=== PATIENT | female | born 1975 | race Native Hawaiian/Other Pacific Islander ===

== ENCOUNTER 2019-05-29 11:00 | Inpatient (IN) | payer BC ==
[~2019-05-29] VITALS: Ht 167.6 cm; Wt 114.5 kg
[2019-05-29 12:12] LABS: PLATELET COUNT 177 K/uL (152-353)
[2019-05-29 12:18] LABS: POTASSIUM 3.2 mmol/L (3.6-5.2)
--- NOTE | 2019-05-29 12:42 | NUR ---
PATIENT ESCORTED BACK TO SURGERY FOR LAPROSCOPIC CHOLECYSTECTOMY WITH MD Sugar BETTS ORDERED. IVF RUNNING ORDERED WITH ABT ADMINISTERED PRIOR TO SURGICAL PROCEDURE. AFEBRILE PREOP. IV SITE TO LEFT WRIST 22 G, NO SIGNS OF INFILTRATION OR INFECTION TO SITE. PT A/O PRIOR TO SURGERY. VITAL SIGNS 98.4 ORALLY, 66 AL, 18 RR, 146/74. 02 99% RA. NAD NOTED. FAMILY AT BEDSIDE.
--- NOTE | 2019-05-29 15:45 | NUR ---
REPORT RECIEVED FROM NIURKA BENITO RN AT NOTED TIME FROM [facility]. PATIENT RETURNED WITH LASIX 20MG AND POTASSIUM 20MEQ STILL INFUSING VIA IVF. PATIENT IN STABLE CONDITION, VITAL SIGNS 131/68, 78 NE, 100% ON 2LPM VIA N.CC, RR 16. PATIENT HAD LAPROSCOPIC CHOLECYSTECTOMY PER MD Sugar BETTS. 2X2 TEGADERM @ UMBILICUS SITE POSTOP. NO S/S INFECTION OR DEHISMENTNOTED. PAIZ INSERTED DURING SURGERY 16FR AND dc'D POST SURGERY WITH URINE OIUTPUT NOTED AND FLATULENCE PASSED. NAD NOTED. RESP EVEN AND UNLABORED. PATIENT AROUSABLE VIA VERBAL STIMULATION. FAMILY AT BEDSIDE POST PROCEDURE AWAITING RETURN FROM OR. PATIENT AFEBRILE.
--- NOTE | 2019-05-29 16:09 | NUR ---
PATIENT STABLE. 97.4, 65 RI, 17 RR, 127/75 BP, 02 100% ON 2LPM VIA N.C. PRN. ABLE TO AROUSE WITH VERBAL STIMULI. NO C/O PAIN. PATIENT STATES SHE SI SLEEPY. CALL LIGHT IN REACH.
[2019-05-29 16:32] VITALS: BP 148/76; TEMP 98.4; Ht 167.6 cm; Wt 114.5 kg
[2019-05-29 20:00] VITALS: BP 132/73; TEMP 97.9
[2019-05-30] VITALS: BP 148/83; TEMP 98.6
[2019-05-30 04:00] VITALS: BP 120/67; TEMP 98.2
[2019-05-30 05:07] LABS: PLATELET COUNT 209 K/uL (152-353)
[2019-05-30 05:37] LABS: POTASSIUM 3.6 mmol/L (3.6-5.2)
--- NOTE | 2019-05-30 06:35 | NUR ---
05/30/19 0630: PT DID WELL DURING NIGHT. AMBULATED TO BATHROOM, TAKING IN PO FLUIDS WITHOUT PROBLEMS. NO COMPLAINTS THIS SHIFT.
[2019-05-30 08:00] VITALS: BP 122/67; TEMP 98
[2019-05-30 12:00] VITALS: BP 113/67; TEMP 97.6
--- NOTE | 2019-05-30 13:56 | NUR ---
PATIENT GIVEN DISCHARGE INSTRUCTIONS WITH VERBAL UNDERSTANDING NOTED. IV 22G X2 TO THE LEFT HAND REMOVED WITH TIP INTACT. PATIENT TAKEN TO THE ER ENTRANCE WITHOUT DIFFICULTY.
== END 2019-05-30 13:56 | disposition home or self-care (01) | DRG 417 ==
LOC: MED/SURG 11:00
PROVIDERS: ADMIT Internal Medicine
PROC: 0FT44ZZ Resection of Gallbladder, Percutaneous Endoscopic Approach (ICD-10-PCS; principal; 2019-05-29)
DX: K81.1 Chronic cholecystitis (principal); K85.10 Biliary acute pancreatitis without necrosis or infection; E87.6 Hypokalemia
CPT/HCPCS: 36415; 80053; 82150; 83690; 84702; 85027; C1887; J0330; J1100; J1170; J1885; J1940; J2001; J2185; J2250; J2405; J2704; J2710; J2765; J3010; J3490; J7120